=== PATIENT | female | born 1995 | race Caucasian/White ===

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

== ENCOUNTER 2020-04-13 18:43 | Emergency (ER) | payer OTHER ==
[~2020-04-13] VITALS: Ht 162.6 cm; Wt 65.9 kg
[~2020-04-13 18:43] MED LIST changes: +ZOFRAN 4MG T4 MG/TAB PO
[2020-04-13 18:49] VITALS: TEMP 97.8
[2020-04-13 20:14] LABS: STREP SCREEN POSITIVE
[2020-04-13 20:15] VITALS: BP 110/82; PULSE 89
[2020-04-13] MEDS ORDERED: CEPHALEXIN500 M1 PO (20:19)
== END 2020-04-13 20:30 | disposition home or self-care (01) ==
LOC: COL.ER 18:43
PROVIDERS: Physician Assistant
DX: J03.00 Acute streptococcal tonsillitis, unspecified (principal); Z20.828 Contact with and (suspected) exposure to other viral communicable diseases